=== PATIENT | male | born 1995 | race African-American/Black ===

== ENCOUNTER 2022-04-05 23:56 | Emergency (ER) | payer MEDICAID ==
[~2022-04-05] VITALS: Ht 185.4 cm; Wt 77.3 kg
[2022-04-06 00:04] VITALS: BP 126/73
[2022-04-06] MEDS ORDERED: LORazepam 0.5 MG TABLET PO ONE (00:30)
[2022-04-06] MEDS ORDERED: LORazepam 1 MG TABLET PO ONE (00:30)
== END 2022-04-06 00:55 | disposition home or self-care (01) ==
LOC: EMS 23:58
DX: F15.10 Other stimulant abuse, uncomplicated (principal); F41.9 Anxiety disorder, unspecified; F19.10 Other psychoactive substance abuse, uncomplicated; F17.210 Nicotine dependence, cigarettes, uncomplicated; F14.90 Cocaine use, unspecified, uncomplicated; F12.90 Cannabis use, unspecified, uncomplicated; Z59.00 Homelessness unspecified
CPT/HCPCS: 99283